=== PATIENT | female | born 1995 | race American Indian/Alaskan Native ===

== ENCOUNTER 2016-12-09 05:46 | Day surgery (SDC) | payer BC ==
[2016-12-05 13:20] LABS: Hemoglobin 18.9 gm/dl (10.1-14.3); Mean Corpuscular HGB Conc 32 % (30-34); Mean Corpuscular Volume 80 fl (79-97); Red Blood Count 7.34 M/mm3 (3.65-5.03); Red Cell Distribution Width 19.7 % (13.2-15.2); White Blood Count 3.9 K/mm3 (4.5-11.0)
[2016-12-05 13:30] LABS: Hematocrit 58.7 % (30.3-42.9); Mean Corpuscular Hemoglobin 26 pg (28-32)
[2016-12-05 14:12] LABS: Basophils % (Manual) 0 % (0.0-1.8); Blastocytes % (Manual) 0 %; Eosinophils % (Manual) 0 % (0.0-4.3)
[2016-12-05 14:14] LABS: Diff Status Complete; Hypochromasia 1+
[2016-12-05 14:18] LABS: Platelet Count 110 K/mm3 (140-440)
--- NOTE | 2016-12-06 13:58 | History and Physical Report ---
History of Present Illness Date of examination: 12/05/16 History of present illness: Patient has been reassessed/reevaluated/re-examined. H&P has been reviewed. No interval changes. This is a 21 years old female who presents with menstrual disorder. She complains of heavy bleeding, fatigue and cramping, but denies irregular menses, mid-cycle spotting, lack of menses, dysmenorrhea, clotting, history of ovarian cysts, history of thyroid disease, history of fibroids, history of PCOS, history of bleeding disorder and lightheadedness. Menses started at age 12. Interval between menses is 25 days and 28 days. Number of pads used per day is 6-8. Menstrual flow lasts > 7 days. Patient reports that for pain she uses OCP 's and ibuprofen. Patient hospitalized last week at [facility] with hgb= 4.8 She was transfused 3 units PRBCs Vital Signs: Patient Profile: 21 Years Old Female Height: 62 inches (157.48 cm) Weight: 163 pounds (74.09 kg) BMI: 29.81 ) Current Method of Contraception: None Past History : 0 Term Births: 0 Premature Births: 0 Living Children: 0 Para: 0 Mult. Births: 0 Prev : 0 Prev. attempt? 0 Aborta: 0 Elect. Ab: 0 Spont. 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 Operations: negative Abnormal PAP: negative Uterine Anomaly: negative Infection History HIV Risk Eval: no Hx of STD: None Current Allergies (reviewed today): No known allergies Past Medical History: Anemia Blood Transfusion (11/23/2016) 3 units PRBCs Past Surgical History: negative Family History Summary: Other family member - Has No Family History of Ovarvian Cancer - Entered On: 12/05 Other family member - Has No Family History of Colon Cancer - Entered On: 2016 Other family member - Has No Family History of Breast Cancer - Entered On: 2016 Other family member - Has Family History of Hypertension - Entered On: 12/05/2016 Other family member - Has Family History of Diabetes - Entered On: 12/05/2016 Other family member - Has Family History of Coronary Heart Disease - Entered On : 12/05/2016 Social History: Reviewed history from 11/28/2016 and no changes required: Smoking History: Patient has never smoked. Risk Factors: Smoked Tobacco Use: Never smoker Smokeless Tobacco Use: Never Passive smoke exposure: no Drug use: no HIV high-risk behavior: no Alcohol use: no Exercise: no Seatbelt use: 100 % Review of Systems General Denies fever, chills, sweats, anorexia, fatigue, weakness, malaise, weight loss and sleep disorder. Complains of menorrhagia. Denies vaginal discharge, incontinence, dysuria, hematuria, urinary frequency, amenorrhea, abnormal vaginal bleeding, pelvic pain, genital sores, decreased libido, painful periods, painful sex, urinary urgency, hot flashes, vaginal dryness, vaginal itching and vaginal odor. CV Denies chest pains, palpitations, syncope, dyspnea on exertion, orthopnea, PND and peripheral edema. Resp Denies cough, dyspnea at rest, excessive sputum, hemoptysis, wheezing and pleurisy. GI Denies nausea, vomiting, diarrhea, constipation, change in bowel habits, abdominal pain, melena, hematochezia, jaundice, gas/bloating, indigestion/ heartburn, dysphagia and odynophagia. Breast Denies left breast lump, right breast lump, nipple discharge, bloody discharge from nipple, breast pain, abnormal mammogram and breast enlargement. Psych Denies depression, anxiety, irritability and mood swings. Past History Past Medical History: other (See HPI) Past Surgical History: Other (See HPI) Social history: other (See HPI) Family history: other (See HPI) Medications and Allergies Allergies Allergy/AdvReac Type Severity Reaction Status Date / Time No Known Allergies Allergy Unverified 12/02/16 15:52 Home Medications Medication Instructions Recorded Confirmed Last Taken Type Ferrous Sulfate [Feosol] 325 mg PO QDAY 12/02/16 12/02/16 12/08/16 History Multivitamin Tab [Multiple Vitamin 1 each PO QDAY 12/02/16 12/02/16 12/08/16 History TAB (Theragran)] Norgestimate-Ethinyl Estradiol 1 each PO DAILY 12/02/16 12/02/16 12/08/16 History [Sprintec 28 Day Tablet] Active Meds: Active Medications Sodium Chloride (Nacl 0.9% 1000 Ml) 1,000 mls @ 75 mls/hr IV DIRECT JULIO Midazolam HCl (Versed) 2 mg IV PREOP NR Stop: 12/09/16 23:59 Review of Systems Constitutional: other (See HPI) Exam - Physical Exam Narrative exam: HEENT: normocephalic, no lesions or deformities Neck/Thyroid: supple, thyroid normal Skin no significant abnormal lesions or rashes Chest: respiratory effort normal, clear to auscultation Breasts: skin/areolae normal, no masses, no nipple discharge, no erythema/warmth /tenderness, and axillae normal. 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 Diagnosis explained to patient . Questions answered. Medical and surgical treatment options discussed Patient desires definitive treatment Patient desires hysteroscopic removal Discussed risk of surgery including infection, bleeding and risk of perforating her uterus. Questions answered. Patient understands and desires to proceed (2) Menometrorrhagia Current Visit: Yes Status: Acute Plan to address problem: Uterine intracavity mass seen on ultrasound. Diagnosis explained to patient . Questions answered. Medical and surgical treatment options discussed Patient desires definitive treatment Patient desires hysteroscopic removal Discussed risk of surgery including infection, bleeding and risk of perforating her uterus. Questions answered. Patient understands and desires to proceed (3) Acute post-hemorrhagic anemia Current Visit: Yes Status: Acute
[2016-12-09] MEDS ORDERED: NACL 0.9% 1000 ML 1,000 ML IV SCH (06:00)
[2016-12-09] MEDS ORDERED: VERSED IV NR (06:00)
[2016-12-09] MEDS ORDERED: NACL BACTERIOSTATIC INFILTRATI ONE (06:09)
[2016-12-09 07:06] LABS: Mean Corpuscular HGB Conc 30 % (30-34); Mean Corpuscular Volume 76 fl (79-97); Platelet Count 484 K/mm3 (140-440); Red Blood Count 3.94 M/mm3 (3.65-5.03); White Blood Count 10.4 K/mm3 (4.5-11.0)
[2016-12-09 07:15] LABS: Mean Corpuscular Hemoglobin 23 pg (28-32); Red Cell Distribution Width 26.9 % (13.2-15.2)
[2016-12-09 07:16] LABS: Hematocrit 29.9 % (30.3-42.9); Hemoglobin 8.9 gm/dl (10.1-14.3)
[2016-12-09] MEDS ORDERED: DIPRIVAN 10 MG/ML IV ONE (07:22)
[2016-12-09] MEDS ORDERED: DILAUDID ONE (07:23)
[2016-12-09] MEDS ORDERED: XYLOCAINE MPF 2% ONE (07:24)
--- NOTE | 2016-12-09 07:26 | Anesthesia Consultation ---
Anesthesia Consult and Med Hx Date of service: 12/09/16 - Airway Anesthetic Teeth Evaluation: Good ROM Head & Neck: Adequate Mental/Hyoid Distance: Adequate Mallampati Class: Class I Intubation Access Assessment: Good - Pulmonary Exam CTA: Yes - Cardiac Exam Cardiac Exam: RRR - Pre-Operative Health Status ASA Pre-Surgery Classification: ASA1 Proposed Anesthetic Plan: General - Pulmonary Hx Asthma: Yes (when younger) - Central Nervous System Hx Psychiatric Problems: No - Hematic Hx Anemia: Yes (on and off) - Other Systems Hx Cancer: No
--- NOTE | 2016-12-09 07:27 | Anesthesia Day of Surgery ---
Anesthesia Day of Surgery - Day of Surgery Patient Examined: Yes Patient H&P Reviewed: Yes Patient is NPO: Yes
[2016-12-09] MEDS ORDERED: DECADRON ONE (07:48)
[2016-12-09] MEDS ORDERED: ZOFRAN ONE (07:48)
[2016-12-09] MEDS ORDERED: TORADOL ONE (07:51)
[2016-12-09] MEDS ORDERED: NACL 0.9% IR ONE ×2 (08:22)
[2016-12-09 08:38] LABS: Anisocytosis 3+; Blastocytes % (Manual) 0 %; Diff Status Complete; Hypochromasia 1+; Large Platelets Few; Polychromasia Few
--- NOTE | 2016-12-09 08:48 | Operative Report ---
Operative Report Operative Report: Date of procedure: 12/09/2016 Pre-operative diagnosis: Pelvic mass with menometrorrhagia and anemia Post-operative diagnosis: Same plus submucosal myoma Procedure name(s): Operative hysteroscopy with MyoSure with dilatation and curettage Surgeon: Keyon Bradley MD Felt Hat Steamer: [] Anesthesia: Gen. EBL: Minimal Complications: None Findings: Intracavitary mass approximately 2.5-3 centimeters consistent with a submucosal myoma Specimen(s): Uterine mass Procedure: Patient was brought into the operating room, where general anesthesia was induced without any difficulty. Patient was placed in dorsal lithotomy position. Prep and drape in the usual sterile manner. Timeout procedure was performed. The patient's bladder was emptied with a red rubber catheter. Speculum was placed in the vagina. Tenaculum was placed at 12:00 on the cervix. The cervical os was dilated to a 19 Wolof diameter. The hysteroscope was placed and the findings noted above. The MyoSure device was primed. The device was placed through the cervical os. The mass was then removed using the MyoSure. The mass was completely removed with no evidence of puncture on the uterine wall. All instruments were then removed. D&C was performed with a banjo curet until a gritty sensation was felt throughout the uterine cavity. All instruments were removed. The patient was awakened in the operating room and accompanied to recovery room in good condition.
--- NOTE | 2016-12-09 08:50 | Short Stay Summary ---
Short Stay Documentation Date of service: 12/09/16 - History H&P: dictated Past Medical History: other (See HPI) Past Surgical History: Other (See HPI) Social history: other (See HPI) - Allergies and Medications Current Medications: Allergies No Known Allergies Allergy (Unverified 12/02/16 15:52) Home Medications Medication Instructions Recorded Confirmed Last Taken Type Ferrous Sulfate [Feosol] 325 mg PO QDAY 12/02/16 12/02/16 12/08/16 History Multivitamin Tab [Multiple Vitamin 1 each PO QDAY 12/02/16 12/02/16 12/08/16 History TAB (Theragran)] Norgestimate-Ethinyl Estradiol 1 each PO DAILY 12/02/16 12/02/16 12/08/16 History [Sprintec 28 Day Tablet] Active Medications Sodium Chloride (Nacl 0.9% 1000 Ml) 1,000 mls @ 75 mls/hr IV DIRECT JULIO Last Admin: 12/09/16 06:30 Dose: 75 mls/hr Midazolam HCl (Versed) 2 mg IV PREOP NR Stop: 12/09/16 23:59 Last Admin: 12/09/16 07:25 Dose: 2 mg - Brief post op/procedure progress note Date of procedure: 12/09/16 (see dictated op note) - Hospital course Hospital course: Patient was admitted underwent the above him procedure without any complications. Patient will be discharged with follow-up in office in 1-2 weeks for postop check. - Disposition Condition at discharge: Good Disposition: DC-01 TO HOME OR SELFCARE - Discharge Diagnoses (1) Pelvic mass Status: Acute (2) Menometrorrhagia Status: Acute (3) Acute post-hemorrhagic anemia Status: Acute Short Stay Discharge Plan Activity: advance as tolerated Diet: regular Follow up with: ALEJANDRO SEGOVIA MD [Primary Care Provider] - 7 Days Forms: Outpatient Surgery DC Inst. Prescriptions: Ibuprofen [Motrin 800 MG tab] 800 mg PO Q6H PRN #30 tablet PRN Reason: Pain Acetaminophen/Codeine [Tylenol #3] 1 tab PO Q4HR PRN #20 tablet PRN Reason: Pain Doxycycline [Vibramycin CAP] 100 mg PO Q12HR #14 capsule
--- NOTE | 2016-12-09 09:15 | Post Anesthesia Evaluation ---
- Post Anesthesia Evaluation Patient Participated: Yes Airway Patent: Yes Stable Respiratory Function: Yes Nausea/Vomiting: No Temp > 96.8F: Yes Pain Manageable: Yes Adequeate Hydration: Yes Anesthesia Complications: No Block Receding Appropriately: Not Applicable Patient on Ventilator: No
[2016-12-09 09:52] VITALS: BP 118/75
== END 2016-12-09 10:20 | disposition home or self-care (01) ==
LOC: OR 05:46
PROVIDERS: ATTEND Obstetrics & Gynecology
DX: D25.0 Submucous leiomyoma of uterus (principal); J45.909 Unspecified asthma, uncomplicated
CPT/HCPCS: 36415; 58558; 84703; 85007; 85025; 88305; A4217; C1782; J1100; J1170; J1885; J2250; J2405; J2704; J7030